=== PATIENT | female | born 1960 | race Caucasian/White ===

== ENCOUNTER 2016-08-05 05:20 | Day surgery (SDC) | payer BC ==
[2016-07-23 16:57] VITALS: BMI 29.6
[~2016-08-05 05:20] MED LIST: ceFAZolin SODIUM 1 GM VIAL IVPB ONE
[2016-08-05] MEDS ORDERED: PROPOFOL 20 ML ONE ×2 (07:37)
[2016-08-05] MEDS ORDERED: SUCCINYLCHOLINE CHLORIDE 200 MG/10 ML VIAL ONE (07:38)
[2016-08-05] MEDS ORDERED: ROCURONIUM BROMIDE 50 MG/5 ML VIAL ONE ×2 (07:38→08:56)
[2016-08-05] MEDS ORDERED: MIDAZOLAM HCL 2 MG/2 ML SINGLE DOSE VIAL ONE (07:38)
[2016-08-05] MEDS ORDERED: SCOPOLAMINE HYDROBROMIDE 1 PATCH PATCH.TD72 ONE (07:54)
[2016-08-05] MEDS ORDERED: LIDOCAINE HCL/PF 2% SDV 5ML VIAL ONE (08:27)
[2016-08-05] MEDS ORDERED: IBUPROFEN 800 MG/8 ML IJ IVPB PRN (08:32)
--- NOTE | 2016-08-05 08:32 | HP ---
History & Physical Update - History History: No Change - Physical Physical: No Change - Assessment Assessment: No Change - Plan Plan: No Change
[2016-08-05] MEDS ORDERED: CEFAZOLIN 2 GM in DEXTROSE 5%-WATER - 100 ML IVPB ONE (08:34)
[2016-08-05] MEDS ORDERED: ceFAZolin SODIUM 1 GM VIAL IVPB ONE (08:42)
[2016-08-05] MEDS ORDERED: ceFAZolin SODIUM 1 GM VIAL ONE (08:47)
[2016-08-05] MEDS ORDERED: DEXAMETHASONE SOD PHOSPHATE 4 MG/1 ML VIAL ONE ×2 (08:52→09:14)
[2016-08-05] MEDS ORDERED: KETOROLAC TROMETHAMINE 30 MG/1 ML VIAL ONE (08:52)
[2016-08-05] MEDS ORDERED: GLYCOPYRROLATE 0.2 MG/1 ML VIAL ONE ×2 (09:28→10:02)
[2016-08-05] MEDS ORDERED: ePHEDrine SULFATE 50 MG/1 ML AMPULE ONE (09:49)
[2016-08-05] MEDS ORDERED: NEOSTIGMINE METHYLSULFATE 0.5 MG/ML - 10 ML MDV ONE (10:02)
[2016-08-05] MEDS ORDERED: HYDROmorphone HCL CARPU-JECT 2 MG/1 ML DISP.SYRIN ONE (10:42)
[2016-08-05] MEDS ORDERED: ONDANSETRON 4 MG/2 ML VIAL IVPUSH PRN (10:42)
[2016-08-05] MEDS ORDERED: HYDROmorphone HCL CARPU-JECT 2 MG/1 ML DISP.SYRIN IVPUSH ONE ×2 (10:42→11:00)
[2016-08-05] MEDS ORDERED: HYDROmorphone *PCA* 10MG/50ML DISP.SYRIN PCA SCH (10:45)
[2016-08-05] MEDS ORDERED: LACTATED RINGERS SOLUTION 1,000 ML IV SCH (10:45)
[2016-08-05 11:02] LABS: MCH 31.1 pg (25.7-33.7); MEAN CELL VOLUME 91.5 fl (80-96); PLATELET COUNT 175 K/MM3 (134-434); RDW 12.9 % (11.6-15.6); WHITE BLOOD COUNT 6.7 K/mm3 (4.0-10.0)
[2016-08-05] MEDS ORDERED: HYDROmorphone *PCA* 10MG/50ML DISP.SYRIN PCA ONE (11:24)
[2016-08-05] MEDS ORDERED: DEXTROSE 5%-LACTATED RINGERS 1,000 ML IV SCH ×2 (16:00)
[2016-08-05] MEDS: CEFAZOLIN 2 GM/D5W 50 ML IVPB SCH ×2 (16:15→23:51)
--- NOTE | 2016-08-05 16:44 | OP ---
Operative Note - Note: Operative Date: 08/05/16 Pre-Operative Diagnosis: Adenomyosis. Pelvic pain Operation: Robotic laparoscopic total hysterectomy. bilateral salpingoophorectomy Findings: uterus 8-9 cm Post-Operative Diagnosis: Same as Pre-op Surgeon: Isis Dunn Manager Study: Jazmine Vu Anesthesiologist/SUSTAINABLE AGRICULTURE SPECIALIST: Blessing Case Anesthesia: General Estimated Blood Loss (mls): 30 Operative Report Dictated: Yes
[2016-08-05] MEDS ORDERED: CEFAZOLIN 2 GM/D5W 50 ML IVPB SCH (17:00)
[2016-08-05] MEDS ORDERED: ONDANSETRON 4 MG/2 ML VIAL IVPB PRN (17:02)
[2016-08-05] MEDS ORDERED: SIMETHICONE 80 MG TAB.CHEW (FP) PO PRN (17:03)
[2016-08-05] MEDS ORDERED: ZOLPIDEM TARTRATE 5 MG TABLET PO PRN (17:09)
[2016-08-05 19:19] LABS: BASOPHIL 0.2 % (0-2.0); MCH 31.4 pg (25.7-33.7); MCHC 34.5 g/dl (32.0-36.0); MEAN CELL VOLUME 91.1 fl (80-96); NEUTROPHILS 92.1 % (42.8-82.8); PLATELET COUNT 195 K/MM3 (134-434); RDW 13.2 % (11.6-15.6); WHITE BLOOD COUNT 10.6 K/mm3 (4.0-10.0)
[2016-08-05 20:32] LABS: CREATININE 1.1 mg/dL (0.55-1.02)
[2016-08-05] MEDS: LACTATED RINGERS SOLUTION 1,000 ML IV SCH (22:03)
[2016-08-06] MEDS: LACTATED RINGERS SOLUTION 1,000 ML IV SCH (05:45)
[2016-08-06] MEDS ORDERED: ACETAMINOPHEN 325 MG TABLET (FP) PO PRN ×2 (06:00)
[2016-08-06] MEDS ORDERED: OXYCODONE/APAP 5/325MG COMBO TABLET PO PRN (06:00)
[2016-08-06] MEDS ORDERED: oxyCODONE HCL 5 MG TABLET PO PRN ×3 (06:00→06:49)
--- NOTE | 2016-08-06 06:55 | PN ---
Progress Note, Physician Chief Complaint: Pt seen/evaluated and doing well. Pain controlled overnight. Tolerating clear liquid diet. Lopez catheter draining adequate clear yellow urine. No CP/SOB/F/ C/FIGUEREDO. No other complaints. - Current Medication List Current Medications: Active Medications Acetaminophen (Tylenol -) 650 mg PO Q4H PRN PRN Reason: FEVER OR PAIN Amlodipine Besylate (Norvasc -) 5 mg PO DAILY [facility] Enoxaparin Sodium (Lovenox -) 40 mg SQ DAILY [facility] Fentanyl (Sublimaze Injection -) 50 mcg IVPUSH S1HCOTOCK PRN PRN Reason: PAIN Stop: 08/08/16 10:43 Hydromorphone HCl (Dilaudid -) 4 mg PO Q4H PRN PRN Reason: PAIN Lactated Ringer's (Lactated Ringers Solution) 1,000 mls @ 125 mls/hr IV ASDIR ERASMO Last Admin: 08/06/16 05:45 Dose: 125 mls/hr Ibuprofen (Caldolor Injection -) 800 mg IVPB Q6H PRN PRN Reason: FEVER Last Admin: 08/05/16 16:47 Dose: 800 mg Loratadine (Claritin -) 10 mg PO DAILY [facility] Losartan Potassium (Cozaar -) 100 mg PO DAILY [facility] Ondansetron HCl (Zofran Injection) 4 mg IVPB Q6H PRN PRN Reason: NAUSEA Oxycodone HCl (Roxicodone -) 10 mg PO Q4H PRN Oxycodone HCl (Roxicodone -) 5 mg PO Q4H PRN PRN Reason: PAIN LEVEL 1-5 Simethicone (Mylicon -) 80 mg PO Q4H PRN PRN Reason: GAS Zolpidem Tartrate (Ambien -) 5 mg PO HS PRN PRN Reason: INSOMNIA Stop: 08/06/16 17:08 - Objective Vital Signs: Vital Signs Temperature 98 F 08/06/16 05:46 Pulse Rate 62 08/06/16 05:46 Respiratory Rate 18 08/06/16 05:46 Blood Pressure 103/68 08/06/16 05:46 O2 Sat by Pulse Oximetry (%) 97 08/05/16 14:16 Constitutional: Yes: Well Nourished, No Distress, Calm Eyes: Yes: Conjunctiva Clear, EOM Intact HENT: Yes: Atraumatic, Normocephalic Neck: Yes: Supple, Trachea Midline Cardiovascular: Yes: Regular Rate and Rhythm Respiratory: Yes: Regular, CTA Bilaterally Gastrointestinal: Yes: Soft, Tenderness (appropriate post surgical tenderness). No: Distention Genitourinary: Yes: Lopez Present Extremities: Yes: WNL Edema: No Wound/Incision: Yes: Clean/Dry, Well Approximated Neurological: Yes: Alert, Oriented Psychiatric: Yes: Alert, Oriented Labs: CBC, BMP 08/05/16 19:00 08/05/16 19:00 Problem List - Problems (1) Status post laparoscopic hysterectomy Code(s): Z90.710 - ACQUIRED ABSENCE OF BOTH CERVIX AND UTERUS (2) History of robot-assisted laparoscopic hysterectomy Code(s): Z90.710 - ACQUIRED ABSENCE OF BOTH CERVIX AND UTERUS Assessment/Plan 55 y/o POD#1 s/p Robotic Total Laparoscopic hysterectomy and bilateral salingo oophorectomy - AFVSS - CBC pending this a.m. - clear diet --> advance to regular - encourage ambulation - disctontinue FIELD TECHNICAL SPECIALIST - for PO/IV PRN pain meds - Dr. Fields consulted for medical management s/p surgery - will appreciate input - routine post op care
[2016-08-06 07:16] LABS: BASOPHIL 0.6 % (0-2.0); EOSINOPHIL 0.6 % (0-4.5); MCH 31.6 pg (25.7-33.7); MCHC 34.9 g/dl (32.0-36.0); MEAN CELL VOLUME 90.4 fl (80-96); MEAN PLT VOLUME 8.6 fl (7.5-11.1); NEUTROPHILS 72.7 % (42.8-82.8); PLATELET COUNT 154 K/MM3 (134-434); RDW 13.1 % (11.6-15.6)
[2016-08-06] MEDS ORDERED: PCA PUMP KEY 1 EACH EACH ONE (07:44)
[2016-08-06] MEDS ORDERED: amLODIPine BESYLATE 5 MG TABLET (FP) PO SCH (10:00)
[2016-08-06] MEDS ORDERED: ENOXAPARIN NA (PORCINE) 40 MG/0.4 ML DISP.SYRIN SQ SCH (10:00)
[2016-08-06] MEDS ORDERED: LOSARTAN POTASSIUM 50 MG TABLET (FP) PO SCH (10:00)
[2016-08-06] MEDS ORDERED: [UNRECOGNIZED DRUG - REMARK] PO SCH (10:00)
[2016-08-06] MEDS ORDERED: PATIENT'S OWN MEDICATION (NON-FORMULARY) (Losartan Potassium [Losartan Potassium] 100 MG) PO SCH (10:00)
[2016-08-06] MEDS ORDERED: LORATADINE 10 MG TABLET PO SCH (10:00)
--- NOTE | 2016-08-06 10:58 | CONSULT ---
[id number] Chief Complaint: s/p hysterectomy NAD not much pain. BP borderline low s/p anesthesia, cozaar held x1 History of Present Illness: see above - History Source History Provided By: Patient, Medical Record Limitations to Obtaining History: No Limitations - Past Medical History Cardio/Vascular: Yes: HTN Hepatobiliary: Yes: Hepatitis C Reproductive: Yes: Fibroids ...LMP: 06/23/14 ...: No - Alcohol/Substance Use Hx Alcohol Use: Yes (SOCIALLY) History of Substance Use: reports: None - Smoking History Smoking history: Former smoker Have you smoked in the past 12 months: No - Social History Usual Living Arrangement: Alone ADL: Independent Place of : [facility] History of Recent Travel: No Home Medications - Allergies Allergies/Adverse Reactions: Allergies Allergy/AdvReac Type Severity Reaction Status Date / Time No Known Drug Allergies Allergy Verified 08/05/16 06:49 pollen extracts AdvReac Mild Verified 08/05/16 06:49 - Home Medications Home Medications: Ambulatory Orders Losartan Potassium 100 mg PO DAILY 10/20/15 Amlodipine Besylate [Norvasc -] 5 mg PO DAILY 10/31/15 Fexofenadine HCl [Chloe Allergy] 180 mg PO DAILY 11/14/15 Oxycodone HCl/Acetaminophen [Percocet 5-325 mg Tablet -] 1 tab PO Q4H #30 tablet MDD 6 08/06/16 Family Disease History - Family Disease History Family History: Unremarkable Review of Systems - Review of Systems Constitutional: denies: Chills, Fever, Malaise Eyes: denies: Blind Spots, Double Vision HENT: denies: Difficult Swallowing, Ear Pain Neck: denies: Stiffness, Tenderness Cardiovascular: denies: Chest Pain, Edema, Shortness of Breath Respiratory: denies: Cough, Exercise Intolerance, Orthopnea, SOB Gastrointestinal: denies: Abdominal Pain, Constipation, Diarrhea Genitourinary: reports: Other (s/p hysterectomy pain controlled). denies: Burning, Dysuria, Flank Pain Musculoskeletal: denies: Back Pain, Joint Pain Neurological: denies: Confusion, Unsteady Gait Hematology/Lymphatic: denies: No Symptoms, Easily Bruised, Excessive Bleeding Psychiatric: denies: Altered Sleep Pattern, Anxiety, Depression Physical Exam Vital Signs: Vital Signs Temperature 97.7 F 08/06/16 08:22 Pulse Rate 59 L 08/06/16 08:22 Respiratory Rate 20 08/06/16 08:22 Blood Pressure 120/74 08/06/16 08:22 O2 Sat by Pulse Oximetry (%) 97 08/05/16 14:16 Constitutional: Yes: No Distress, Calm Eyes: Yes: Conjunctiva Clear HENT: Yes: Atraumatic Neck: Yes: Supple Cardiovascular: Yes: Regular Rate and Rhythm Respiratory: Yes: CTA Bilaterally Gastrointestinal: Yes: Soft, Tenderness (mild with palpation after lap surgery) . No: Distention Renal/: No: CVA Tenderness - Left, CVA Tenderness - Right, Hematuria Musculoskeletal: No: Joint Stiffness, Joint Swelling Extremities: No: Cold, Cool Edema: No Peripheral Pulses WNL: Yes Neurological: Yes: WNL, Alert, Oriented ...Motor Strength: WNL Psychiatric: Yes: WNL, Alert, Oriented. No: Agitated, Suicidal Ideation Labs: CBC, BMP 08/06/16 06:40 08/05/16 19:00 Imaging - Results Other: Report Reviewed Assessment/Plan HTN, OA s/p KNee surgery, overweight, hep C, ex-tobacco, uterine fibroids s/p hysterectomy Cozaar for HTN; hold if SBP<120 pain meds early ambulation SUB ACUTE CARE NURSE and PCP f/u after DC as instructed healthy diet, weight loss, no tobacco d/w pt health maintenance with PCP falls pfx d/w pt and staff
--- NOTE | 2016-08-06 13:17 | PATH ---
Surgical Pathology Report Patient Name: CHRIS GIANG [facility]. Rec. #: [id number] /Age/Gender: 1960 (Age: 55) / F Account: [id number] Location: [facility] OBS/AIR[place] RAMP ATTENDANT Taken: 08/05/2016 Received: 08/05/2016 Reported: 08/06/2016 Physicians: Isis Dunn M.D. Specimen(s) Received UTERUS, CERVIX, BILATERAL FALLOPIAN TUBES & BILATERAL OVARIES Clinical History Adenomyosis Final Diagnosis UTERUS AND CERVIX WITH BILATERAL FALLOPIAN TUBES AND OVARIES, HYSTERECTOMY AND BILATERAL SALPINGO-OOPHORECTOMY: UTERUS AND CERVIX, 112 GRAMS, WITH FOCAL SIMPLE ENDOMETRIAL HYPERPLASIA WITH CILIATED CELL CHANGE WITHOUT ATYPIA, FOCAL SUPERFICIAL ADENOMYOSIS, AND CERVIX WITH CHRONIC INFLAMMATION. BENIGN LEFT FALLOPIAN TUBE WITH ADHESIONS TO BENIGN ADIPOSE TISSUE PRESENT. BENIGN LEFT OVARY WITH SEROSAL FIBROVASCULAR ADHESIONS PRESENT. BENIGN RIGHT FALLOPIAN TUBE PRESENT. BENIGN RIGHT OVARY WITH SEROSAL FIBROVASCULAR ADHESIONS PRESENT. Electronically Signed Kyle Corbin M.D. Gross Description Received in formalin, labeled "uterus, cervix, bilateral fallopian tubes and ovaries," is a 112 g hysterectomy specimen including a uterus, attached cervix and bilateral attached fallopian tubes and ovaries. The specimen measures 9 cm superior to inferior, 6 cm from left to right and 4 cm from anterior to posterior. The serosa is pink-cronin and smooth. The attached cervix measures 2.6 cm in length and averages 2.8 cm in diameter. The ectocervix is pink-cronin, smooth and glistening. The endocervix is unremarkable. The endometrial cavity measures 4.5 cm in length and 3 cm from cornu to cornu. The endometrium is red and averages 0.1 cm in thickness. The myometrium is cronin-pink and averages 1.8 cm in thickness. No intramural nodules are identified. The left fimbriated fallopian tube measures 6 cm in length. The outer surface is velez purple with focal tubal ovarian adhesions. There is a focal portion of adipose tissue attached to the fimbria. Sectioning of the fallopian tube reveals an unremarkable lumen. The left ovary measures 2.2 x 2.0 x 1.0 cm. The outer surface is cronin and convoluted. Sectioning reveals a 0.6 cm in greatest dimension cyst. The remaining ovarian parenchyma is unremarkable. The right fimbriated fallopian tube measures 6 cm in length. The outer surface is velez purple and smooth. Sectioning reveals an unremarkable lumen. The right ovary measures 2.3 x 1.7 x 1.0 cm. The outer surface is cronin and convoluted. Sectioning reveals unremarkable ovarian parenchyma. Button Buttonhole Marker sections are submitted in 12 cassettes as follows: 1-anterior cervix; 2-posterior cervix; 1-9-actrcdox endomyometrium; 3-1-lgjmglbxr endomyometrium; 7-left fallopian tube fimbria with attached fat; 8-cross sections of left fallopian tube; 9-left ovary; 10-right fallopian tube fimbria; 11-cross sections of right fallopian tube; 12-right ovary. 08/05/2016 [facility]08/05/2016
[2016-08-06 14:12] VITALS: BP 131/75; PULSE 66; TEMP 98.2
--- NOTE | 2016-08-06 18:18 | OP ---
DATE OF OPERATION: 08/05/2016 PREOPERATIVE DIAGNOSIS: Endometriosis and pelvic pain. OPERATION: Robotic laparoscopic total hysterectomy and bilateral salpingo-oophorectomy . POSTOPERATIVE DIAGNOSIS: Endometriosis and pelvic pain. FINDINGS: An 8 to 9 cm leiomyomas uterus. SURGEON: Isis Dunn M.D. CUSHION INSTALLER: Jazmine Vu M.D. ANESTHESIA: General. ANESTHESIOLOGIST: Pj Tavares M.D. NURSE COMMERCIAL MANAGEMENT ACCOUNTANT: Blessing Case CRNA ESTIMATED BLOOD LOSS: 30 mL. PROCEDURE: Patient taken to operating room, placed in dorsal lithotomy position , prepped and draped in usual sterile fashion. A timeout was performed in accordance with the hospital regulation. Lopez catheter was placed into the bladder. Speculum was placed into the vagina and to the lip of the cervix, grasping with tenaculum. Cervix was then dilated to accommodate the V-Care device. Attention was then turned to the umbilicus where 8-mm umbilical incision was made. Veress needle was introduced into the cavity approximately 3 to 4 L of CO2 was insufflated in the cavity. The Veress needle was then removed and an 8-mm trocar was then inserted. Laparoscopic camera attached, visualization revealed numerous adhesions, omental adhesions. Two 8-mm incisions were made on the left and 8-mm trocar was inserted under direct visualization. Upper abdomen incision was made to accommodate the cannula and two right incisions parallel to each other on the right side was done, and 8-mm trocars were inserted under direct visualization. Trocar placement was confirmed, and cannula was then placed. The Da Francesca robot was then side docked to patient's bedside. Trocars were then attached to the Da Francesca robot. Vessel sealer was placed on the left under direct visualization, and Endoshears and tenaculum was placed on the right. Attention was then done to the console, control of the console was done. Anterior omental adhesions were seen, and adhesions were grasped, and the vessel sealer was then used to coagulate and cut the adhesions. All adhesions were removed, and the uterus was then exteriorized and was lifted using tenaculum. Round ligament was identified and clamped and cut. Infundibulopelvic ligament was identified and clamped and cut. Tubes were noted to be normal. Ovaries were noted to be normal. Vesiculouterine reflection was then entered and bladder dissected out of the abdominal field. Uterine artery identified and clamped and cut, and cardinal ligament identified and clamped and cut down to the level of the cervix. The cautery was then used to enter the vagina, and the V-Care device was seen. Attention was then drawn to the right side where the same procedure was repeated. The infundibulopelvic ligament was identified and clamped and cut using vessel sealer. The bladder was bluntly dissected out of the abdominal field and vagina was entered on the right. The uterine artery was identified and clamped and cut using vessel sealer, and cardinal ligaments were identified and clamped and cut down to the level of the cervix. The Endoshears were then used to cut the vagina away from the cervix circumferentially. The cervix was removed from the vagina. The cervix then uterus, tubes, and ovaries were removed from the vagina, and the 0 V-Loc suture was then passed through the vagina and needle ny was then used after tenaculum was removed, needle ny was placed, and needle ny was then used to grasp the V-Loc suture. Continuos stitch was then with the V-Loc suture and airtight seal was seen and noted. The needle was then removed from the trocar. Hemostasis was achieved. Ureters were identified bilaterally and found to have peristalsis. Estimated blood loss was 30 mL. Da Francesca robot was removed from the patient's bedside after trocars had been undocked, and all CO2 was removed from the abdomen. All trocars were removed. Incisions were then closed using 4-0 Biosyn in subcuticular fashion. Wound was washed and dressed. Patient tolerated procedure well. Estimated blood loss 30 mL. Marielle [id number] MTDJoselyn
== END 2016-08-06 15:59 | disposition home or self-care (01) ==
LOC: JASUSAT 05:20 → EDSTATUS 08:00 → J3W 14:10 → JASUSAT 08-06 15:59
PROVIDERS: ATTEND Obstetrics & Gynecology
PROC: 0UT2FZZ Resection of Bilateral Ovaries, Via Natural or Artificial Opening With Percutaneous Endoscopic Assistance (ICD-10-PCS; 2016-08-05)
PROC: 0UT7FZZ Resection of Bilateral Fallopian Tubes, Via Natural or Artificial Opening With Percutaneous Endoscopic Assistance (ICD-10-PCS; 2016-08-05)
PROC: 8E0W8CZ Robotic Assisted Procedure of Trunk Region, Via Natural or Artificial Opening Endoscopic (ICD-10-PCS; 2016-08-05)
PROC: 0UT9FZZ Resection of Uterus, Via Natural or Artificial Opening With Percutaneous Endoscopic Assistance (ICD-10-PCS; principal; 2016-08-05 08:00)
PROC: 0UTC7ZZ Resection of Cervix, Via Natural or Artificial Opening (ICD-10-PCS; 2016-08-05 08:00)
DX: N80.0 Endometriosis of uterus (principal); D25.9 Leiomyoma of uterus, unspecified
CPT/HCPCS: 58552; S2900; 36415; 80048; 84703; 85025; 85027; 86850; 86900; 86901; 88307-TC; 94010

== ENCOUNTER 2018-08-12 07:25 | Day surgery (SDC) | payer BC ==
[2018-08-06 10:37] VITALS: BMI 35.2
[2018-08-12] MEDS ORDERED: PROPOFOL 20 ML ONE ×2 (08:23)
[2018-08-12 09:46] VITALS: BP 106/65; PULSE 68; TEMP 98
== END 2018-08-12 09:35 | disposition home or self-care (01) ==
LOC: FASU-ENDO 07:25
PROVIDERS: ATTEND Internal Medicine Gastroenterology
PROC: 0DJD8ZZ Inspection of Lower Intestinal Tract, Via Natural or Artificial Opening Endoscopic (ICD-10-PCS; principal; 2018-08-12 08:26)
DX: Z12.11 Encounter for screening for malignant neoplasm of colon (principal); K57.30 Diverticulosis of large intestine without perforation or abscess without bleeding